=== PATIENT | female | born 1940 | race Caucasian/White ===

== ENCOUNTER 2020-07-19 12:02 | Day surgery (SDC) | payer MEDICARE, OTHER ==
--- OUTSIDE RECORDS SUMMARY | 2020-07-11 07:50 | XMSREPORT | Referral Summary ---
:1940 Author Organization [facility] s Address [address] [place] [id number] Care Team Providers Name Role Phone Judy Flood PA-C Attributed Provider Judy Flood PA-C Primary Care Provider Reason for Referral Transitions of Care (Routine) Status Reason Specialty Diagnoses / Referred By Referred To Procedures Contact Contact New Request Service Not Diagnoses History of colon polyps Clemencia Flood, Health, [facility] Available at [facility] [address] [place] [phone] Phone: Fax: Reason for Visit Reason Comments Diabetes Medication Management Encounter Details Date Type Department Care Team Description 07/09/[address] [facility] Clemencia Flood, History of c olon polyps (Primary Dx); [facility] Type 2 diabetes mellitus with both eyes affected by moderate nonproliferative retinopathy and macular edema, with long-term current use of insulin (HCC); [address] [place] [place] [address] [place] [address] Allergies No Known Allergiesdocumented as of this encounter (statuses as of 07/09/2020) Medications Medication Sig Dispensed Refills Start End Status Date Date aspirin 81 mg Take 81 mg by 0 Ac tive enteric coated mouth 1 time per tablet day. biotin 5 MG CAPS Take 5 mg by 0 Active mouth 1 time per day. insulin needle (B-D USE 1 EACH WITH 300 each 1 01/24/20 Active UF III MINI PEN EACH INJECTION 16 NEEDLES) 31G X 5 mm USE DIRECTED (3") Mini DX: E11.9 ibuprofen (ADVIL) Take 200 mg by 0 Active 200 MG capsule mouth every 4 to 6 hours as needed PRODIGY LANCETS 28G 1 Strip 4 times a 1 box 11 06/10/20 Active MISCIndications: day 18 Type 2 diabetes mellitus with both eyes affected by moderate nonproliferative retinopathy and macular edema, with long-term current use of insulin ([facility]) multivitamin/lutein Take 1 capsule by 0 Active (PROSIGHT;OCUVITE-L mouth 1 time per UTEIN) capsule day metFORMIN Take 1 tablet 180 tablet 3 07/09/19 Activ e (GLUCOPHAGE) 1000 (1,000 mg) by 21 MG mouth 2 times a tabletIndications: day with meals Type 2 diabetes mellitus with both eyes affected by moderate nonproliferative retinopathy and macular edema, with long-term current use of insulin ([facility]) insulin glargine Inject 20 Units 30 mL 07/09/19 Active (BASAGLAR) subcutaneously 21 subcutaneous every night at injection bedtime (pen)Indications: Type 2 diabetes mellitus with both eyes affected by moderate nonproliferative retinopathy and macular edema, with long-term current use of insulin ([facility]) glipiZIDE Take 1 tablet (5 180 tablet 07/09/19 Ac tive (GLUCOTROL) 5 mg mg) by mouth 2 21 tabletIndications: times a day with Type 2 diabetes meals mellitus with both eyes affected by moderate nonproliferative retinopathy and macular edema, with long-term current use of insulin ([facility]) atorvaSTATin Take 1 tablet (20 90 tablet 07/09/19 Active (LIPITOR) 20 mg mg) by mouth 1 21 tabletIndications: time per day Type 2 diabetes mellitus with both eyes affected by moderate nonproliferative retinopathy and macular edema, with long-term current use of insulin ([facility]) losartan 50 mg Take 1 tablet (50 90 tablet 07/09/19 Active tabletIndications: mg) by mouth 1 21 Essential time per day hypertension, Type 2 diabetes mellitus with both eyes affected by moderate nonproliferative retinopathy and macular edema, with long-term current use of insulin ([facility]) atorvaSTATin TAKE 1 TABLET 90 tablet 3 07/13/19 Dis continued (LIPITOR) 20 mg NIGHTLY AT 20 021 (Re order) tabletIndications: BEDTIME Type 2 diabetes mellitus with both eyes affected by moderate nonproliferative retinopathy and macular edema, with long-term current use of insulin ([facility]) losartan 50 mg TAKE 1 TABLET 90 tablet 3 07/13/19 D iscontinued tabletIndications: ONCE DAILY 20 021 (Reorder) Essential hypertension insulin glargine INJECT 20 UNITS 30 mL 3 10/04/19 Discontinued (BASAGLAR) 20 021 (Reorder) subcutaneous SUBCUTANEOUSLY injection EVERY NIGHT AT (pen)Indications: BEDTIME Type 2 diabetes mellitus with both eyes affected by moderate nonproliferative retinopathy and macular edema, with long-term current use of insulin ([facility]) glipiZIDE TAKE 1 TABLET 180 tablet 3 10/04/19 Disco ntinued (GLUCOTROL) 5 mg TWICE DAILY WITH 20 021 (Reorder) tabletIndications: MEALS Type 2 diabetes mellitus with both eyes affected by moderate nonproliferative retinopathy and macular edema, with long-term current use of insulin ([facility]) metFORMIN Take 1 tablet 180 tablet 3 11/11/19 Disco ntinued (GLUCOPHAGE) 1000 (1,000 mg) by 20 021 (Reorder) MG mouth 2 times a tabletIndications: day with meals Type 2 diabetes mellitus with both eyes affected by moderate nonproliferative retinopathy and macular edema, with long-term current use of insulin ([facility]) documented as of this encounter (statuses as of 07/09/2020) Active Problems Problem Noted Date Acute medial meniscus tear of left knee 09/25/2016 Type 2 diabetes mellitus with both eyes affected by mo derate 09/18/2015 nonproliferative retinopathy and macular edema, with l mesfin-term current use of insulin Osteopenia 03/01/2013 Pure hypercholesterolemia 03/01/2013 Generalized osteoarthrosis of hand 07/28/2006 Asymptomatic varicose veins 07/28/2006 Essential hypertension 12/21/2003 Dermatophytosis of nail 12/21/2003 Malignant neoplasm of colon 12/21/2003 documented as of this encounter (statuses as of 07/09/2020) Immunizations Name Administration Dates Next Due FLU VACCINE HIGH DOSE 65YR+(Fluzone) 03/27/2020, 04/04/2019, 03/31/2018, 04/22/2017, 04/15/2016, 04/12/2015, 04/07/2014 Influenza Vaccine,unspecified 04/02/2010, 03/21/2009, 2007 Pneumococcal Conj PCV13 05/15/2016 Pneumococcal Polysaccharide PPSV23 12/12/2008 Td(adult)preservative free 12/12/2008 Zoster Live(Zostavax) 04/19/2009 Zoster Recombinant (Shingrix) 02/08/2020, 08/17/2019 documented as of this encounter Social History Tobacco Use Types Packs/Day Years Used Date Former Smoker Cigarettes 1 Quit: 06/29/18 97 Smokeless Tobacco: Never Used Alcohol Use Drinks/Week oz/Week Comments Yes 0 Rare/Occasional 0.0 wine Sex Assigned at Date Recorded Not on file documented as of this encounter Last Filed Vital Signs Vital Sign Reading Time Taken Comments Blood Pressure 132/74 07/09/2020 1:21 PM [employer] Pulse 82 07/09/2020 1:21 PM [employer] Temperature 35.2 C (95.4 F) 07/09/2020 1:21 PM [employer] Respiratory Rate 16 07/09/2020 1:21 PM [employer] Oxygen Saturation 97% 07/09/2020 1:21 PM [employer] Inhaled Oxygen Concentration - - Weight 76.4 kg (168 lb 6.4 oz) 07/09/2020 1:21 PM [employer] Height 162.6 cm (5' 4") 07/09/2020 1:21 PM [employer] Body Mass Index 28.91 07/09/2020 1:21 PM [employer] documented in this encounter Functional Status Functional Status Response Date of Assessment Do you have difficulty with walking, balance, climbing No 07/09/2020 stairs, or had a fall in the last 3 months? documented as of this encounter Patient Instructions Patient InstructionsClemencia Flood PA-C - 07/09/2020 1:22 PM CST Your recent lab work came back good. Electrolytes, liver function, and kidney function were normal. Lab Results Component Value Date GLUCOSE 140 (H) 07/06/2020 BUN 13 07/06/2020 CREATSERUM 0.78 07/06/2020 BCRATIO 16.7 07/06/2020 NA 136 07/06/2020 POTASSIUM 4.3 07/06/2020 CL 100 07/06/2020 CO2 28 07/06/2020 CA 9.2 07/06/2020 PROTEINTOTAL 7.1 07/06/2020 ALBUMIN 4.3 07/06/2020 ALKPHOS 98 07/06/2020 AST 25 07/06/2020 ALT 19 07/06/2020 BILITOTAL 0.6 07/06/2020 EGFR 71 07/06/2020 A1C was stable, well controlled. Lab Results Component Value Date HGBA1C 7.0 07/06/2020 HGBA1C 7.0 03/27/2020 HGBA1C 7.0 10/03/2019 Cholesterol was great, well controlled. Lab Results Component Value Date CHOLESTEROL 119 07/06/2020 HDLCHOL 67 07/06/2020 LDL 43 07/06/2020 TRIGLYCERIDE 43 (L) 07/06/2020 Red and white blood cells were normal. Lab Results Component Value Date WBC 7.6 07/06/2020 NUCRBC 0 07/06/2020 RBC 4.40 07/06/2020 HEMOGLOBIN 13.7 07/06/2020 HEMATOCRIT 42.0 07/06/2020 MCV 95.5 07/06/2020 MCH 31.1 07/06/2020 MCHC 32.6 07/06/2020 PLTCOUNT 223 07/06/2020 NEUTROPCT 41.3 07/06/2020 LYMPHSPCT 45.4 07/06/2020 MONOSPCT 6.1 07/06/2020 EOSPCT 6.6 07/06/2020 BASOPHILPCT 0.3 07/06/2020 I would recommend continuing your current medications withOUT changes. You are due for a few health maintenance/preventative measures: Tetanus vaccine. Your insurance likely does not cover (unless you have a cut or burn). Come get thisif you sustain an injury. Otherwise, [facility] has this for about 80$ (good for 10 years). Diabetic foot exam. Done today. Colonoscopy. This can be done in [place], [place], or [place]. [employer] RESEARCH ENGINEER documented in this encounter Plan of Treatment Name Type Priority Associated Diagnoses Order S [facility] REFERRAL Referral Routine History of colon polyps O rdered: 07/09/2020 ENDOSCOPY NON ONE CHART documented as of this encounter Visit Diagnoses Diagnosis History of colon polyps - Primary Personal history of colonic polyps Type 2 diabetes mellitus with both eyes affected by moderate nonproliferative retinopathy and macular edema, with long -term current use of insulin (HCC) Essential hypertension Unspecified essential hypertension documented in this encounter
[2020-07-19] MEDS ORDERED: Sodium Chloride 0.9% 10 ML Syringe FLUSH PRN (12:15)
[2020-07-19] MEDS: Lactated Ringers 1,000 ML IV SCH (13:23)
[2020-07-19] MEDS ORDERED: Propofol 200 MG/20 ML SDV ONE ×2 (13:58→14:02)
--- NOTE | 2020-07-19 14:32 | PCM.OPNOTE ---
- General Post-Op/Procedure Note Date of Surgery/Procedure: 07/19/20 Operative Procedure(s): Colonoscopy with polypectomy X 3 Findings: Above Pre Op Diagnosis: Hx Polyps Post-Op Diagnosis: Same Anesthesia Technique: MAC Primary Surgeon: Sanjay Thompson Anesthesia Provider: Nesha Marr Pathology: 3 polyps Complications: None Condition: Good
[2020-07-19 17:00] VITALS: BP 125/81; PULSE 76
--- NOTE | 2020-07-20 08:27 | OR ---
Date of Procedure: 07/19/2020 PREOPERATIVE DIAGNOSIS: History of colon polyps. POSTOPERATIVE DIAGNOSIS: Colon polyps. PROCEDURE: Colonoscopy with polypectomy. ANESTHESIA: IV sedation. PROCEDURE IN DETAIL: Patient was brought to the procedure room where she was placed on the left side and IV sedation administered. Digital rectal exam was performed which was normal. Colonoscope was inserted and advanced to the level of the cecum without difficulty. Cecal position was confirmed by identifying the appendiceal lumen and ileocecal valve. Prep was good and surfaces were well visualized. Upon withdrawing the scope, there was a 5-mm sessile polyp located in the proximal descending colon that was removed with the hot biopsy forceps and sent for pathology review. In the proximal transverse colon, there was a 7- mm semipedunculated polyp removed with a cautery snare and retrieved in the polyp trap. Descending colon was normal. Sigmoid colon was normal. In the rectum at 10 cm, there was a 6-mm sessile polyp removed with a cautery snare and retrieved in the polyp trap. Retroflexion was normal. Air was removed. The scope withdrawn. Patient tolerated the procedure well, returned to recovery in stable condition. Patient will be contacted with the pathology report when it returns. If polyps are adenomatous, she could consider a repeat colonoscopy again in 5 years if her health warrants. ELIS COSTA MD /[id number]
== END 2020-07-19 15:45 | disposition home or self-care (01) ==
LOC: LL.SDS 12:02
PROVIDERS: ATTEND Surgery
DX: Z12.11 Encounter for screening for malignant neoplasm of colon (principal); D12.4 Benign neoplasm of descending colon; D12.3 Benign neoplasm of transverse colon; K62.1 Rectal polyp; E11.3313 Type 2 diabetes mellitus with moderate nonproliferative diabetic retinopathy with macular edema, bilateral; I10 Essential (primary) hypertension; E78.00 Pure hypercholesterolemia, unspecified; Z01.812 Encounter for preprocedural laboratory examination; Z20.822 Contact with and (suspected) exposure to COVID-19; Z79.899 Other long term (current) drug therapy; Z79.4 Long term (current) use of insulin
CPT/HCPCS: 00812; 82962; 88305; J2704; J7120; U0002

== ENCOUNTER 2022-02-18 22:33 | Emergency (ER) | payer MEDICARE, OTHER ==
[2022-02-18 22:47] VITALS: BP 148/55; PULSE 95
[2022-02-18] MEDS ORDERED: Lidocaine 2% with EPINEPHrine 1:100,000 20 ML MDV INJECT ONE (23:43)
[2022-02-19] MEDS ORDERED: Bacitracin Oint 1 GM U/D Packet TOP ONE (00:47)
== END 2022-02-19 00:15 | disposition home or self-care (01) ==
LOC: LL.ED 22:33
DX: I83.892 Varicose veins of left lower extremity with other complications (principal); Z79.899 Other long term (current) drug therapy; Z79.82 Long term (current) use of aspirin; Z79.84 Long term (current) use of oral hypoglycemic drugs
CPT/HCPCS: 12001; 36415; 85025; 99284

== ENCOUNTER 2022-05-23 13:17 | Emergency (ER) | payer MEDICARE, OTHER ==
[2022-05-23] MEDS ORDERED: Ondansetron 4 MG/2 ML SDV IVPUSH PRN (13:30)
[2022-05-23 14:09] LABS: ANION GAP 10.9 meq/L (7-15)
[2022-05-23] MEDS ORDERED: fentaNYL 50 MCG/ML SDV IVPUSH ONE (14:10)
[2022-05-23 14:13] LABS: BARBITURATE SCREEN,URINE NEGATIVE (NEGATIVE); BENZODIAZEPINES SCREEN,URINE NEGATIVE (NEGATIVE); EDDP,URINE SCREEN NEGATIVE (NEGATIVE); TCA SCREEN,URINE NEGATIVE (NEGATIVE); THC SCREEN,URINE 50 NG/ML NEGATIVE (NEGATIVE)
[2022-05-23 14:14] LABS: BUPRENORPHINE SCREEN,URINE NEGATIVE (NEGATIVE)
[2022-05-23] MEDS ORDERED: HYDROmorphone 0.5 MG/0.5 ML Syringe IVPUSH PRN (14:18)
[2022-05-23] MEDS ORDERED: Sodium Chloride 0.9% 1,000 ML IV SCH (14:30)
[2022-05-23 17:21] VITALS: BP 113/64
[2022-05-23 17:44] VITALS: PULSE 95
== END 2022-05-23 16:45 ==
LOC: LL.ED 13:56
DX: S72.145A Nondisplaced intertrochanteric fracture of left femur, initial encounter for closed fracture (principal); E78.00 Pure hypercholesterolemia, unspecified; M19.90 Unspecified osteoarthritis, unspecified site; E11.9 Type 2 diabetes mellitus without complications; Z79.82 Long term (current) use of aspirin; Z79.4 Long term (current) use of insulin; Z79.899 Other long term (current) drug therapy; W00.0XXA Fall on same level due to ice and snow, initial encounter
CPT/HCPCS: 36415; 51702; 72170; 80053; 80305-QW; 81001; 83605; 85025; 93005; 96361; 96374; 96375; 99285-25; J1170; J2405; J3010; J7030